=== PATIENT | male | born 1970 | race Caucasian/White ===

== ENCOUNTER 2018-07-07 13:29 | Outpatient (CLI) | payer OTHER | END 2018-07-07 13:30 | disposition home or self-care (01) | DRG 552 | LOC: CONVCARE 13:29 | PROVIDERS: ATTEND Orthopaedic Surgery | DX: M54.9 Dorsalgia, unspecified (principal); M25.562 Pain in left knee; M25.561 Pain in right knee; M17.12 Unilateral primary osteoarthritis, left knee; M43.16 Spondylolisthesis, lumbar region; M54.16 Radiculopathy, lumbar region; M48.061 Spinal stenosis, lumbar region without neurogenic claudication | CPT/HCPCS: 72120 ==

== ENCOUNTER 2018-07-22 08:31 | Outpatient (CLI) | payer OTHER | END 2018-07-22 08:32 | disposition home or self-care (01) | DRG 552 | LOC: CONVCARE 08:31 | PROVIDERS: ATTEND Orthopaedic Surgery | DX: M48.061 Spinal stenosis, lumbar region without neurogenic claudication (principal) | CPT/HCPCS: 72120 ==